=== PATIENT | female | born 1985 | race Caucasian/White ===

== ENCOUNTER 2020-07-09 13:10 | Emergency (ER) | payer SELFPAY ==
[~2020-07-09] VITALS: Ht 165 cm; Wt 81.0 kg
--- NOTE | 2020-07-09 13:37 | ED General ---
General Chief Complaint: Dizziness/Syncope Stated Complaint: SEIZURE/HEAD LAC Nursing Triage Note: PT TO ED PER EMS FOR C/O POSS SEIZURE-LIKE ACTIVITY/SYCOPAL EPISODE. PER EMS, PT REPORTS SHE BECAME DIZZY WHILE WALKING THROUGH [facility], HAD "SIEZURE-LIKE ACTIVITY" FELL STRIKING HER HEAD ON A SHELF THEN ON THE FLOOR PER WITNESS. PT DENIED LOSS OF BOWEL ET BLADDER AT THIS TIME. DENIES C/O HEAD, NECK OR BACK PAIN AT THIS TIME. DOES REPORT LACERATION TO SCALP. PT A/OX3 AT THIS TIME. Nursing Sepsis Screen: No Definite Risk (ALPA JASSO MED STUDENT) History of Present Illness Date Seen by Provider: Jul 09, 2020 Time Seen by Provider: 13:20 Initial Comments This is a 35 y/o F presenting to the Emergency Department via EMS for a chief complaint of syncope and seizure. Per her son, Lorenzo, soon after got to an aisle in [facility], she kneeled down because she felt dizzy. She fell back, hit her head on the floor and started shaking and foaming at the mouth. This lasted 30-45 seconds. Per the patient, she felt lightheaded and lost consciousness because she didn't remember the ambulance or police arriving. She has a knot she felt on top of her head that is painful. Per EMS, she was in a post-ictal state and denies neck or back pain. She has a small abrasion on top of her head. She has tachycardia around the 130's but the patient states this is normal for her. EMS states her other vital signs were within normal range. She has a history of a hysterectomy and denies previous occurrences. On physical exam, she has a small abrasion at the top of her head with dried blood and a small tongue abrasion. Heart rate is in the 130's, otherwise, the patient is alert and oriented. (ALPA JASSO MED STUDENT) Allergies and Home Medications Allergies Coded Allergies: tramadol (Unverified Allergy, Unknown, 07/09/20) Patient Home Medication List Home Medication List Reviewed: Yes (ISRAEL MARQUEZ MD) Review of Systems Review of Systems Constitutional: No dizziness, No fever, No weakness EENTM: No hearing loss, No blurred vision, No double vision, No eye pain Respiratory: No cough, No short of breath Cardiovascular: No chest pain Gastrointestinal: No abdominal pain Musculoskeletal: No back pain, No neck pain Skin: lesions (on scalp and tongue) (ALPA JASSO MED STUDENT) Constitutional: No dizziness Genitourinary: no symptoms reported Psychiatric/Neurological: See HPI Hematologic/Lymphatic: No Symptoms Reported (ISRAEL MARQUEZ MD) Past Fyjdwzx-Txgxkk-Kneldw Hx Past Med/Social Hx: Reviewed Nursing Past Med/Soc Hx (ISRAEL MARQUEZ MD) Patient Social History Alcohol Use: Denies Use Recreational Drug Use: No Smoking Status: Current Everyday Smoker Type Used: Electronic/Vapor Recent Foreign Travel: No Contact w/Someone Who Travel: No Recent Infectious Disease Expo: No Physical Abuse: No Sexual Abuse: No Mistreated: No Fear: No (ALPA JASSO STUDENT) Past Medical History Surgeries: Yes (BREAST AUGMENTATION) Adenoidectomy, Hysterectomy, Tonsillectomy, Tubal Ligation Respiratory: No Cardiac: No Neurological: No Genitourinary: No Gastrointestinal: No Musculoskeletal: No Endocrine: No HEENT: No Cancer: No Psychosocial: No Integumentary: No Blood Disorders: No (ALPA JASSO STUDENT) Physical Exam Vital Signs Vital Signs - First Documented 07/09/20 13:17 Temp 36.8 Pulse 135 Resp 16 B/P (MAP) 125/71 (89) Pulse Ox 95 O2 Delivery Room Air (ISRAEL MARQUEZ MD) Vital Signs Capillary Refill : Less Than 3 Seconds (ALPA JASSO STUDENT) Height, Weight, BMI Height: '" Weight: lbs. oz. kg; 29.00 BMI Method: General Appearance: No Apparent Distress, WD/WN Neurologic/Psychiatric: Alert, Oriented x3 Skin: Other (lesion on top of head and on tongue) (ALPA JASSO STUDENT) HEENT: PERRL/EOMI, Other (Small subcentimeter superficial laceration on the right frontal scalp. Tenderness on the left frontal scalp. Contusions/abrasions of the bilateral tongue.) Neck: Normal Inspection, Non Tender Respiratory: Lungs Clear, Normal Breath Sounds, No Accessory Muscle Use, No Respiratory Distress Cardiovascular: No Edema, No Murmur, Tachycardia Extremity: Normal Inspection, No Pedal Edema Neurologic/Psychiatric: No Motor/Sensory Deficits, Normal Mood/Affect, life skills instructor II- XII Norm as Tested Skin: Normal Color, Warm/Dry (ISRAEL MARQUEZ MD) Progress/Results/Core Measures Suspected Sepsis Recent Fever Within 48 Hours: No Infection Criteria Present: None New/Unexplained Altered Menta: No Sepsis Screen: No Definite Risk SIRS Temperature: Pulse: 135 Respiratory Rate: 16 Laboratory Tests 07/09/20 14:10: White Blood Count 12.7H Blood Pressure 125 /71 Mean: 89 Laboratory Tests 07/09/20 14:10: Creatinine 0.87, Platelet Count 373, Total Bilirubin 0.3 (ALPA JASSO MED STUDENT) Results/Orders Lab Results Laboratory Tests Test 07/09/20 14:10 07/09/20 15:00 Range/Units White Blood Count 12.7 H 4.3-11.0 10^3/uL Red Blood Count 4.87 3.80-5.11 10^6/uL Hemoglobin 14.3 11.5-16.0 g/dL Hematocrit 43 35-52 % Mean Corpuscular Volume 88 80-99 fL Mean Corpuscular Hemoglobin 29 25-34 pg Mean Corpuscular Hemoglobin Concent 33 32-36 g/dL Red Cell Distribution Width 12.4 10.0-14.5 % Platelet Count 373 130-400 10^3/uL Mean Platelet Volume 9.6 9.0-12.2 fL Immature Granulocyte % (Auto) 1 % Neutrophils (%) (Auto) 77 H 42-75 % Lymphocytes (%) (Auto) 15 12-44 % Monocytes (%) (Auto) 5 0-12 % Eosinophils (%) (Auto) 2 0-10 % Basophils (%) (Auto) 1 0-10 % Neutrophils # (Auto) 9.8 H 1.8-7.8 10^3/uL Lymphocytes # (Auto) 1.9 1.0-4.0 10^3/uL Monocytes # (Auto) 0.6 0.0-1.0 10^3/uL Eosinophils # (Auto) 0.3 0.0-0.3 10^3/uL Basophils # (Auto) 0.1 0.0-0.1 10^3/uL Immature Granulocyte # (Auto) 0.1 0.0-0.1 10^3/uL Sodium Level 137 135-145 MMOL/L Potassium Level 4.2 3.6-5.0 MMOL/L Chloride Level 106 98-107 MMOL/L Carbon Dioxide Level 19 L 21-32 MMOL/L Anion Gap 12 5-14 MMOL/L Blood Urea Nitrogen 9 7-18 MG/DL Creatinine 0.87 0.60-1.30 MG/DL Estimat Glomerular Filtration Rate > 60 BUN/Creatinine Ratio 10 Glucose Level 96 70-105 MG/DL Calcium Level 9.2 8.5-10.1 MG/DL Corrected Calcium 8.5-10.1 MG/DL Magnesium Level 2.2 1.6-2.4 MG/DL Total Bilirubin 0.3 0.1-1.0 MG/DL Aspartate Amino Transf (AST/SGOT) 22 5-34 U/L Alanine Aminotransferase (ALT/SGPT) 25 0-55 U/L Alkaline Phosphatase 85 40-136 U/L Total Protein 7.5 6.4-8.2 GM/DL Albumin 4.6 H 3.2-4.5 GM/DL TSH [place] Testing 3.66 0.35-4.94 UIU/ML Serum Alcohol < 10 <10 MG/DL Urine Color YELLOW Urine Clarity CLEAR Urine pH 5.5 5-9 Urine Specific [place] 1.010 L 1.016-1.022 Urine Protein NEGATIVE NEGATIVE Urine Glucose (UA) NEGATIVE NEGATIVE Urine Ketones NEGATIVE NEGATIVE Urine Nitrite NEGATIVE NEGATIVE Urine Bilirubin NEGATIVE NEGATIVE Urine Urobilinogen 0.2 < = 1.0 MG/DL Urine Leukocyte Esterase NEGATIVE NEGATIVE Urine RBC (Auto) TRACE-L NEGATIVE Urine RBC NONE /HPF Urine WBC NONE /HPF Urine Squamous Epithelial Cells 10-25 H /HPF Urine Crystals NONE /LPF Urine Bacteria TRACE /HPF Urine Casts NONE /LPF Urine Mucus NEGATIVE /LPF Urine Culture Indicated NO Urine Opiates Screen NEGATIVE NEGATIVE Urine Oxycodone Screen NEGATIVE NEGATIVE Urine Methadone Screen NEGATIVE NEGATIVE Urine Propoxyphene Screen NEGATIVE NEGATIVE Urine Barbiturates Screen NEGATIVE NEGATIVE Ur Tricyclic Antidepressants Screen NEGATIVE NEGATIVE Urine Phencyclidine Screen NEGATIVE NEGATIVE Urine Amphetamines Screen NEGATIVE NEGATIVE Urine Methamphetamines Screen NEGATIVE NEGATIVE Urine Benzodiazepines Screen NEGATIVE NEGATIVE Urine Cocaine Screen NEGATIVE NEGATIVE Urine Cannabinoids Screen NEGATIVE NEGATIVE (ISRAEL MARQUEZ MD) My Orders Orders - ISRAEL MARQUEZ MD Alcohol (07/09/20 13:43) Cbc With Automated Diff (07/09/20 13:43) Comprehensive Metabolic Panel (07/09/20 13:43) Drug Screen Stat (Urine) (07/09/20 13:43) Magnesium (07/09/20 13:43) Thyroid Analyzer (07/09/20 13:43) Ua Culture If Indicated (07/09/20 13:43) Ct Head Wo (07/09/20 13:43) Lactated Ringers (Lr 1000 Ml Iv Solution (07/09/20 13:45) Dipht,Pertuss(Acell),Tet Adult (Boostrix (07/09/20 15:00) (ISRAEL MARQUEZ MD) Medications Given in ED Current Medications Medications Dose Ordered Sig/Chente Route Start Time Stop Time Status Last Admin Dose Admin Diphtheria/ Tetanus/Acell Pertussis 0.5 ml ONCE ONCE IM 07/09/20 15:00 07/09/20 15:01 DC 07/09/20 15:06 0.5 ML Lactated Ringer's 1,000 ml @ 0 mls/hr Q0M ONCE IV 07/09/20 13:45 07/09/20 13:47 DC 07/09/20 14:09 0 MLS/HR (ISRAEL MARQUEZ MD) Vital Signs/I&O 07/09/20 07/09/20 13:17 16:04 Temp 36.8 Pulse 135 104 Resp 16 20 B/P (MAP) 125/71 (89) 120/74 Pulse Ox 95 99 O2 Delivery Room Air Room Air (ISRAEL MARQUEZ MD) Vital Signs/I&O Capillary Refill : Less Than 3 Seconds (ALPA JASSO MED STUDENT) Blood Pressure Mean: 89 Progress Note : Time: 13:45 Progress Note - IV line established. IV fluids ordered for administration. Blood has been drawn for CBC. A head CT has been ordered to check for bleeding and injury. 14:50 - CT of head was negative for findings. WBC was elevated at 12.7. (ALPA JASSO MED STUDENT) Progress Note : Progress Note Work-up was relatively unremarkable. There is mild leukocytosis which is likely due to physiologic stress. Patient received Boostrix injection for tetanus prophylaxis. 500 mL of IVF was administered. Heart rate improved to the 90s. No cause for seizure-like activity was identified. Patient had denied any chest pain, shortness of breath, or palpitations. Rhythm was sinus on the monitor. Patient states she felt a dysphoria or lightheadedness prior to the syncopal episode. She had actually developed doubt because of this sensation and then collapsed when she tried to stand up. She denies ever having any prior symptoms of this kind. It is unclear if patient had syncope and collapse followed by seizure from head injury or if seizure was the primary cause of her collapse. Seizure as the primary cause is favored due to her dysphoric prodrome without chest pain, shortness of breath, or palpitations. Discharge instructions were reviewed with the patient and close follow-up in the outpatient setting was recommended. (ISRAEL MARQUEZ MD) Diagnostic Imaging Diagonstic Imaging: CT Plain Films/CT/US/NM/MRI: head Comments CT head report reviewed. See report below: NAME: AGUSTIN RINCON [facility] REC#: [id number] PT STATUS: REG ER : 1985 PHYSICIAN: ISRAEL MARQUEZ MD ADMIT DATE: 07/09/20/ER Draft Date of Exam:07/09/20 CT HEAD WO PROCEDURE: CT head without contrast. TECHNIQUE: Multiple contiguous axial images were obtained through the brain without the use of intravenous contrast. Auto Exposure Controls were utilized during the CT exam to meet ALARA standards for radiation dose reduction. INDICATION: Seizure-like activity, syncopal episode. CORRELATION: None FINDINGS: There is no midline shift or mass effect. The ventricles and sulci are unremarkable. No evidence for acute intracranial hemorrhage, abnormal extra-axial fluid collections or cerebral edema is present. The basilar cisterns are unremarkable. The bony calvarium is intact. Prominent cyst or polyp posterior left maxillary sinus. IMPRESSION: Negative appearing noncontrast CT of the head. Dictated on workstation # [id number] Dict: 07/09/20 1421 Trans: 07/09/20 1423 DO [id number] Interpreted by: MATHIEU PRESTON DO (ISRAEL MARQUEZ MD) Departure Impression Primary Impression: Seizure-like activity Additional Impressions: Sinus tachycardia Scalp laceration Qualified Codes: S01.01XA - Laceration without foreign body of scalp, initial encounter Disposition: HOME, SELF-CARE Condition: Improved Departure-Patient Inst. Referrals: NO,LOCAL PHYSICIAN (PCP/Family) Primary Care Physician Patient Instructions: Seizures, Adult (DC) Add. Discharge Instructions: Follow-up with your primary care provider as soon as possible. Further work-up may be appropriate such as MRI of the head, cardiac monitoring, etc. In the meantime avoid any activities that might be dangerous should you have another seizure-like episode. These activities include use of heights like ladders, driving, use of machinery, swimming, etc. by state law you are not allowed to drive for 6 months after a seizure event unless cleared by a physician. Drink plenty of clear liquids to stay well-hydrated. Return to the emergency room if you have recurrent symptoms. Call if you have any questions or concerns. All discharge instructions reviewed with patient and/or family. Voiced understanding. ALPA JASSO MED STUDENT Jul 09, 2020 13:37 ISRAEL MARQUEZ MD Jul 09, 2020 15:56
[2020-07-09] MEDS ORDERED: LACTATED RINGERS 1,000 ML IV ONE (13:45)
[2020-07-09 14:13] LABS: BASOPHILS # (AUTO) 0.1 10^3/uL (0.0-0.1); BASOPHILS % (AUTO) 1 % (0-10); EOSINOPHILS # (AUTO) 0.3 10^3/uL (0.0-0.3); EOSINOPHILS % (AUTO) 2 % (0-10); HEMATOCRIT 43 % (35-52); HEMOGLOBIN 14.3 g/dL (11.5-16.0); LYMPHOCYTES # (AUTO) 1.9 10^3/uL (1.0-4.0); LYMPHOCYTES % (AUTO) 15 % (12-44); MEAN CORPUSCULAR HEMOGLOBIN 29 pg (25-34); MEAN CORPUSCULAR HGB CONC 33 g/dL (32-36); MEAN CORPUSCULAR VOLUME 88 fL (80-99); MEAN PLATELET VOLUME 9.6 fL (9.0-12.2); MONOCYTES # (AUTO) 0.6 10^3/uL (0.0-1.0); MONOCYTES % (AUTO) 5 % (0-12); NEUTROPHILS # (AUTO) 9.8 10^3/uL (1.8-7.8); NEUTROPHILS % (AUTO) 77 % (42-75); PLATELET COUNT 373 10^3/uL (130-400); WHITE BLOOD COUNT 12.7 10^3/uL (4.3-11.0)
--- NOTE | 2020-07-09 14:16 | NUR ---
PT TO CT AT THIS TIME. PRIOR TO GOING, PT REPORTED HER WANTS HER TO SIGN OUT AMA SINCE HOSPITAL RULES WILL NOT ALLOW FAMILY MEMBERS BACK W/ PTS. PT ASKED WHY HER 14 YR OLD SON WAS ALLOWED IN ET THIS RN EDUCATED PT THAT SINCE HE WAS A MINOR, THAT WAS THE ONLY REASON WHY HE COULD SIT AT HER BEDSIDE.
--- NOTE | 2020-07-09 14:23 | Diagnostic Imaging Report ---
PROCEDURE: CT head without contrast. TECHNIQUE: Multiple contiguous axial images were obtained through the brain without the use of intravenous contrast. Auto Exposure Controls were utilized during the CT exam to meet ALARA standards for radiation dose reduction. INDICATION: Seizure-like activity, syncopal episode. CORRELATION: None FINDINGS: There is no midline shift or mass effect. The ventricles and sulci are unremarkable. No evidence for acute intracranial hemorrhage, abnormal extra-axial fluid collections or cerebral edema is present. The basilar cisterns are unremarkable. The bony calvarium is intact. Prominent cyst or polyp posterior left maxillary sinus. IMPRESSION: Negative appearing noncontrast CT of the head. Dictated by: Dictated on workstation # [id number]
[2020-07-09 14:26] LABS: ALBUMIN 4.6 GM/DL (3.2-4.5); CHLORIDE 106 MMOL/L (98-107); POTASSIUM 4.2 MMOL/L (3.6-5.0); SODIUM 137 MMOL/L (135-145)
[2020-07-09 14:27] LABS: CALCIUM 9.2 MG/DL (8.5-10.1)
[2020-07-09 14:28] LABS: GLUCOSE 96 MG/DL (70-105)
[2020-07-09 14:29] LABS: TOTAL PROTEIN 7.5 GM/DL (6.4-8.2)
--- NOTE | 2020-07-09 14:29 | NUR ---
PT BACK FROM CT, RESTING QUIETLY, SON AT BEDSIDE. NO C/O VOICED
[2020-07-09 14:30] LABS: BILIRUBIN,TOTAL 0.3 MG/DL (0.1-1.0); CARBON DIOXIDE 19 MMOL/L (21-32)
[2020-07-09 14:32] LABS: ALKALINE PHOSPHATASE 85 U/L (40-136); CREATININE SERUM 0.87 MG/DL (0.60-1.30); GFR ESTIMATED > 60
[2020-07-09 14:33] LABS: BUN/CREATININE RATIO 10
[2020-07-09 14:35] LABS: ALANINE AMINOTRANSFERASE 25 U/L (0-55); MAGNESIUM 2.2 MG/DL (1.6-2.4)
[2020-07-09 14:56] LABS: TSH (THYROID ANALYZER) 3.66 UIU/ML (0.35-4.94)
[2020-07-09] MEDS ORDERED: TETANUS,DIPTH,PERTUSS P/F (BOOSTRIX) 0.5 ML VIAL IM ONE (15:00)
[2020-07-09 15:07] LABS: BILIRUBIN,URINE NEGATIVE (NEGATIVE); CLARITY,URINE CLEAR; COLOR,URINE YELLOW; GLUCOSE, URINE (UA) NEGATIVE (NEGATIVE); KETONES,URINE NEGATIVE (NEGATIVE); LEUKOCYTE ESTERASE ,URINE NEGATIVE (NEGATIVE); NITRITE,URINE NEGATIVE (NEGATIVE); PH,URINE 5.5 (5-9); PROTEIN,URINE NEGATIVE (NEGATIVE)
[2020-07-09 15:47] LABS: AMPHETAMINE SCREEN, URINE NEGATIVE (NEGATIVE); BARBITURATE SCREEN URINE NEGATIVE (NEGATIVE); BENZODIAZEPINES SCREEN URINE NEGATIVE (NEGATIVE); CANNABINOID SCREEN, URINE NEGATIVE (NEGATIVE); COCAINE SCREEN URINE NEGATIVE (NEGATIVE); METHADONE STAT NEGATIVE (NEGATIVE); METHAMPHETAMINE SCREEN URINE S NEGATIVE (NEGATIVE); OPIATE SCREEN URINE NEGATIVE (NEGATIVE); OXYCODONE STAT NEGATIVE (NEGATIVE); PROPOXYPHENE STAT NEGATIVE (NEGATIVE); TRICYCLIC ANTIDEPRESSANTS SCRE NEGATIVE (NEGATIVE)
[2020-07-09 15:53] LABS: BACTERIA,URINE TRACE /HPF
[2020-07-09 16:04] VITALS: BP 120/74
--- NOTE | 2020-07-09 16:04 | NUR ---
PT DISCHARGED TO HOME W/ INSTR. PT TO F/U W/ PCP ET RETURN IF SYMPTOMS CHANGE OR GET WORSE. PT VOICED UNDERSTANDING. NO QUESTIONS
== END 2020-07-09 16:04 | disposition home or self-care (01) ==
LOC: ER 13:13
DX: S01.01XA Laceration without foreign body of scalp, initial encounter (principal); R00.0 Tachycardia, unspecified; R56.9 Unspecified convulsions; F17.290 Nicotine dependence, other tobacco product, uncomplicated; Z88.5 Allergy status to narcotic agent; Z23 Encounter for immunization; W22.8XXA Striking against or struck by other objects, initial encounter
CPT/HCPCS: 70450; 80053; 80306; 81000; 83735; 84443; 85025; 99283; G0480; 36415; 80320; 90715

== ENCOUNTER → 2021-03-23 | Outpatient (CLI) | payer BC ==
--- NOTE | 2021-03-23 14:48 | Diagnostic Imaging Report ---
PROCEDURE: US Non-OB pelvis comp/trans. TECHNIQUE: Multiple realtime grayscale images were obtained of the pelvis in various projections, endovaginally. Transabdominal imaging was also performed. INDICATION: Pelvic pain. COMPARISON: None available. FINDINGS: Uterus is surgically absent. No mass within the surgical bed. The right ovary measures 3.3 x 2.5 x 2.6 cm. The left ovary measures 4.6 x 2.6 x 2.5 cm. Both ovaries are physiologic in appearance with small follicles present. Blood flow is seen in both ovaries on color doppler imaging. No suspicious adnexal mass or fluid collection. No free pelvic fluid. IMPRESSION: 1. Normal physiologic appearance of the ovaries with small follicles present. 2. Surgically absent uterus. Dictated by: Dictated on workstation # [id number]
--- NOTE | 2021-03-23 15:49 | Diagnostic Imaging Report ---
EXAM: Limited ultrasound of the left breast. INDICATION: Left breast pain and lump. The diagnostic mammogram performed earlier today noted there had been a slight change in the fibroglandular tissue in the retroareolar region of the left breast but there was no discrete mass identified. On this exam, there is still no discrete solid or cystic mass evident in the retroareolar region of the left breast. There is no abnormal shadowing evident either. It may well be that the area of slightly altered density in the retroareolar region of the left breast is due to fibroglandular tissue alone. In my conversation with the patient, she did relate that both of her grandmothers had from breast cancer and that her mother and sister both have cervical cancer. While it feels unlikely that there is a malignant process present, it may prove worthwhile to obtain an MRI breast exam for a more sensitive evaluation of this area. IMPRESSION: 1. There is no evidence of malignancy. Considerations and recommendations as above. 2. These results were discussed with Dr. Tory Tello. ACR category 0 ACR BI-RADS Category 0: Incomplete. (Needs additional imaging evaluation). Result letter will be mailed to the patient. Note: At least 10% of breast cancer is not imaged by mammography. Dictated by: Dictated on workstation # [id number]
--- NOTE | 2021-03-24 07:44 | Diagnostic Imaging Report ---
Digital mammogram bilateral diagnostic INDICATION: Lumpy feeling burning in the retroareolar region The study was compared to the prior exam of 08/06/2016. There are bilateral implants in place and the implants appear to be intact and stable when compared to the prior exam. The fibroglandular tissue overlying the implants is heterogeneously dense. This does limit the sensitivity of this exam. The density of the fibroglandular tissue in the left retroareolar region is somewhat greater than noted on the previous study. This may be secondary to positioning. The possibility that there is an underlying neoplastic abnormality, such as DCIS, should still be considered. Ultrasound would be recommended for further evaluation. There is no primary or secondary sign of malignancy involving the right breast. IMPRESSION: Ultrasound would be recommended for further evaluation of the retroareolar region of the left breast. ACR BI-RADS Category 0: Incomplete. (Needs additional imaging evaluation). Result letter will be mailed to the patient. Note: At least 10% of breast cancer is not imaged by mammography. Dictated by: Dictated on workstation # [id number]
== END ==
LOC: RAD 09:15
PROVIDERS: ATTEND Obstetrics & Gynecology
DX: N63.20 Unspecified lump in the left breast, unspecified quadrant (principal); R10.2 Pelvic and perineal pain; Z90.710 Acquired absence of both cervix and uterus
CPT/HCPCS: 76642; 76830; 76856; 77066; G0279; 77062

== ENCOUNTER → 2021-04-03 | Outpatient (CLI) | payer BC ==
[~2021-04-03] MED LIST: GADOBUTROL 15 MMOL/15 ML (GADAVIST) VIAL IV ONE
--- NOTE | 2021-04-04 17:23 | Diagnostic Imaging Report ---
EXAMINATION: MRI BREAST BILAT W W/O CON INDICATION: Problem solving MRI. Increased density in the retroareolar left breast seen on recent diagnostic mammogram. The patient recently reported pain and a palpable lump in the left breast, for which diagnostic mammography and ultrasound was negative. TECHNIQUE: Utilizing a 1.5 Shahnaz magnet, the patient was placed in the prone position with a dedicated breast coil in place. Axial STIR, T2 fat sat, T1 and T1 fat-sat images are obtained without contrast. Postcontrast high-resolution dynamic images are also obtained. Pre and post contrasted images are then evaluated with [employer] for evaluation of possible angiogenesis. 8 mL of Gadavist gadolinium contrast material was administered intravenously. COMPARISON: Diagnostic mammogram and left breast ultrasound performed on 03/23/2021. FINDINGS: RIGHT BREAST: The breast is composed of heterogeneous fibroglandular tissue. There is moderate background parenchymal enhancement. A prepectoral silicone implant is present. There are no findings to suggest intracapsular or extracapsular rupture. No evidence of free silicone. There is no suspicious mass or non-mass enhancement. There is no axillary or internal mammary adenopathy. LEFT BREAST: The breast is composed of heterogeneous fibroglandular tissue. There is moderate background parenchymal enhancement. A prepectoral silicone implant is present. There are no findings to suggest intracapsular or extracapsular rupture. No evidence of free silicone. There is clumped non-mass enhancement in the 12:00 breast approximately 8 cm superior to the nipple (images [id number] series 1001). This measures approximately 0.8 x 2.4 x 0.8 cm and demonstrates persistent-type enhancement on kinetic analysis. There is no definite mammographic correlate for this finding on review of recent diagnostic mammogram images. There is no other suspicious mass or non-mass enhancement. There is no axillary or internal mammary adenopathy. IMPRESSION: There is clumped non-mass enhancement in the 12:00 mid to posterior depth left breast. This finding is probably benign and favored to represent parenchymal enhancement related to an island of breast tissue. 2nd look (MRI directed) ultrasound is recommended for further evaluation. If no sonographic correlate is found, short interval follow-up MRI is recommended in 6 months to assess stability. Otherwise, no evidence of malignancy in either breast and no findings to account for the patient's recently reported left breast symptoms. Further evaluation should be based on clinical findings. Bilateral breast implants are intact, without findings to suggest intracapsular/extracapsular rupture or free silicone. BI-RADS Category 3: Probably Benign Dictated by: Dictated on workstation # [id number]
== END ==
LOC: RAD 08:16
PROVIDERS: ATTEND Obstetrics & Gynecology
DX: R92.2 Inconclusive mammogram (principal); Z98.82 Breast implant status
CPT/HCPCS: 77049

== ENCOUNTER → 2021-04-10 | Outpatient (CLI) | payer BC ==
--- NOTE | 2021-04-10 12:58 | Diagnostic Imaging Report ---
INDICATION: 2nd look ultrasound. Patient had a recent abnormal MRI of the breasts on 04/03/2021. Recent MRI demonstrated non-mass enhancement at the 12 o'clock location of the left breast, approximately 8 cm from the nipple. Ultrasound evaluation of this area does show an area of indeterminate hypoechogenicity at the 11 o'clock location, 10 cm from the nipple measuring 1.8 x 0.3 x 0.5 cm. No internal vascularity is seen. This is similar to surrounding breast tissue, may represent island of fibrous glandular tissue. No concerning sonographic finding is seen. Continued followup is recommended. IMPRESSION: BI-RADS Category 3 No concerning sonographic findings identified to account for the non-mass enhancement noted on MRI. Followup breast MRI in 6 months is recommended to show continued stability. ACR BI-RADS Category 3: Probably benign findings. Result letter will be mailed to the patient. Note: At least 10% of breast cancer is not imaged by mammography. Dictated by: Dictated on workstation # [id number]
== END ==
LOC: RAD 10:14
PROVIDERS: ATTEND Obstetrics & Gynecology
DX: R92.8 Other abnormal and inconclusive findings on diagnostic imaging of breast (principal)
CPT/HCPCS: 76642